=== PATIENT | female | born 1985 | race Caucasian/White ===

== ENCOUNTER 2016-06-15 15:11 | Emergency (ER) | payer BC ==
[~2016-06-15] VITALS: Ht 160 cm; Wt 80.0 kg
[~2016-06-15 15:11] MED LIST: ALPR0.5T PO; AZIT250T81 PO; CITA40TA5 PO; ETHY1TAB3 PO; FENO145T20; GUAI118L16; LEVO75TA; METR500T PO; OMEG-103 PO; ONDAN4ODT PO; ONDN4T PO; TOPI25CA6
--- OUTSIDE RECORDS SUMMARY | 2016-06-15 15:15 | XMS REPORT | Continuity of Care Document ---
Author Author [facility] Organization [facility] Address Unknown Phone Unavailable Care Team Providers Care Surveyor Geodetic Name Role Phone Bozena Flowers PCP Unavailable Source Comments Some departments are not documenting in the electronic medical record. If you do not see the information that you expected, contact Release of Information in the Health Information Management department at [phone] for further assistance in locating additional records.[facility] Active Allergies and Adverse Reactions Allergen Noted Date Severity Reactions Comments Other 07/02/2014 Low SEE COMMENTS Has to be pretreated with an Anti-histamin prior to any blood transfusions Current Medications Prescription Sig. Disp. Refills Start End Date Status Date estradiol (ESTRACE) 1 mg Take 1 mg by mouth daily. Active tablet escitalopram oxalate Take 20 mg by mouth Active (LEXAPRO) 20 mg tablet daily. clonazePAM (KLONOPIN) 1 Take 1 mg by mouth at Active mg tablet bedtime daily. B&C/FA/ZINC/COPPER Take by mouth. Active OXIDE/VIT E (STRESS B-COMPLEX PO) MULTIVITAMIN PO Take by mouth. Active levothyroxine (SYNTHROID) Take 1 Tab by mouth 30 Tab 6 07/13/19 Active 88 mcg tablet daily. 15 buPROPion XL (WELLBUTRIN Take 300 mg by mouth Active XL) 300 mg tablet every morning. Do not crush or chew. gemfibrozil (LOPID) 600 Take 600 mg by mouth Active mg tablet twice daily. hydroCHLOROthiazide Take 25 mg by mouth every Active (HYDRODIURIL) 25 mg morning. tablet linaclotide(+) (LINZESS) Take 145 mcg by mouth Active 145 mcg cap capsule daily 30 minutes before breakfast. Active Problems Problem Noted Date Colon cancer high risk 04/26/2016 Overview: Patient at increased risk related to family history - father with colon polyps identified at age 40 (unknown type) and grandmother with colon cancer (though this may have been metastatic from another primary per patient) Per the current [facility] LTFU Guidelines, patient is classified as high risk for colon cancer related to a history of therapeutic radiation to field potentially impacting colon tissue as follows: > 30 Gy - initiate colonoscopy screening at age 37 or 10 years after radiation (whichever occurs last) and continue at least every 5 years 2011 - colonoscopy WNL - plan on starting at age 37 unless symptoms or change to family history that dictates earlier screening Chronic low back pain with right-sided back and hip pain, Radiculopathy Overview: Progressive following Ewings treatment in right pelvis in [id number]. Follows with ortho/Dr. Sara Guadarrama in [place] and anesthesia pain / Dr. Cobos at [facility]. Has been told has disc protrusion at L4-L5. Getting epidural injections. 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 - no recent PT or PMR. 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 No recent SI / HI. - reports doing well on wellbutrin for anxiety and depression control. - [facility] [place]-psychology referral to coordinate with follow-up appointments History of obesity 04/26/2016 Overview: Formatting of this note may be different from the original. Body mass index is 30.88 kg/(m^2). Wt Readings from Last 5 Encounters: 04/26/16 81.647 kg (180 lb) 07/02/14 86.183 kg (190 lb) Discussed patient's BMI with her. The body mass index is 30.88 kg/(m^2). and falls within the category of Obesity 1 (30 to <35); BMI plan is in progress. - encouraged excellent progress to date with lifestyle efforts - discussed additional resources for consideration in future if desired - particularly interested in survivorship lifestyle study if / when available At risk for secondary malignancy 04/26/2016 Overview: Per the current [facility] LTFU Guidelines, patient is classified as increased risk for secondary malignancy related to a history of therapeutic radiation / antineoplastic chemotherapy - encouraged importance of lifestyle effort (avoidance of tobacco exposure, sun screen use, regular skin cancer screening exams) - CBC annually until at least 10 years off therapy (completed therapy 2000) and PRN - UA annually History of antineoplastic chemotherapy 04/25/2016 Overview: Formatting of this note may be different from the original. Drug Name Route Cumulative Dose Date of Treatment Comment 1 Ifosfamide IV 63,200 mg/m2 based of records received 2 Vincristine IV 7.5 mg/m2 based of records received 3 Etoposide (VP16) IV 3,900 mg/m2 based of records received 4 Cyclophosphamide IV 10,638 mg/m2 based of records received 5 Doxorubicin IV 360 mg/m2 based of records received - targeted late effects monitoring / education / screening updated [facility] visit 04/2016 History of radiation therapy 04/25/2016 Overview: Formatting of this note may be different from the original. Site/Field/Type Laterality Dates Fractions Dose per Fraction (Gy)* Total Fractions Initial Dose (GY)* Boost Dose (Gy)*/Site Total Dose /w Boost (Gy)* 1 Pelvis: Pelvic Right START: 10-12-1999 STOP: 11-29-1999 Gy 55.8 Gy Oncologist: Institution: Comment: - targeted late effects monitoring / education / screening updated [facility] visit 04/2016 Acquired hypothyroidism 04/25/2016 Overview: Formatting of this note may be different from the original. 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 Was on dual hormone therapy with estrogen and progesterone until 2013 when changed to estrogen only 12/2014 - DEXA (see bone density) - continue estrogen replacement therapy At risk for cardiac dysfunction 04/25/2016 Overview: Per the current [facility] LTFU Guidelines, patient is classified as high risk for cardiac dysfunction related to cardiotoxic chemotherapy. 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 She presented to the ED where a pelvic CT revealed a a pelvic mass. On intital evaluation a vague fullness was palpated over her right buttock with tenderness in the medial aspect of that fullness. She did not have organomegaly or adenopathy. Laboratory evaluation revealed a normal CBC with a ESR of 13. A MRI scan of the pelvis showed infiltration of the right iliac wing surrounding soft tissue mass and possible extension into the right sacrum. Three views of the pelvis showed fraying of the iliac wing side of the right sacral iliac joint with some possible lucencies in the right iliac wing. Bone scan showed abnormal radiotracer uptake in the right iliac wing with no evidence of metastatic disease. Chest CT showed no evidence of pulmonary metastases. An open biopsy of the right pelvic tumor was consistent with a diagnosis of Jacobson's tumor. Treatment Dates: 08-01-1999 to 08-23-2000 Treating Facility: Treating Providers: (oncology), (radiation oncology) Prior Formal Survivorship Care before [facility]: Survive and Thrive Clinic at [facility] in [place], [place] - Dr. Deepthi Mcarthur prior to establishing with [facility] / Dr. Mohan in 04/2016 - treatment summary loaded into survivorship tab - targeted late effects monitoring / education / screening updated [facility] visit Most Recent Encounters Date Type Specialty Providers Description 04/26/2016 [facility] Carmela Mohan MD Personal history of Encounter malignant neoplasm of bone 04/26/2016 Office Visit General Internal Medicine Carmela Mohan MD History of Jacobson's sarcoma (Primary Dx); History of oophorectomy; History of antineoplastic chemotherapy; History of radiation therapy; Dyslipidemia; Acquired hypothyroidism; Premature ovarian failure; Other depression; At risk for cardiac dysfunction; Jacobson's sarcoma (HCC); Colon cancer high risk; Anxiety and depression; Medication monitoring encounter; Chronic low back pain with right-sided back and hip pain, Radiculopathy 04/16/2016 Documentation General Internal Medicine Mirta Diehl, CELESTE 04/11/2016 Telephone General Internal Medicine Mirta Diehl, RN Appointment Social History Tobacco Use Types Packs/Day Years Used Date Never Smoker Alcohol Use Drinks/Week oz/Week Comments No 0 Standard 0.0 drinks or equivalent Last Filed Vital Signs Vital Sign Reading Time Taken Blood Pressure 131/69 04/26/2016 9:08 AM CONTRACTS ADVISOR Pulse 95 04/26/2016 9:08 AM CONTRACTS ADVISOR Temperature - - Respiratory Rate 16 04/26/2016 9:08 AM CONTRACTS ADVISOR Height 1.626 m (5' 4") 04/26/2016 9:08 AM CONTRACTS ADVISOR Weight 81.647 kg (180 lb) 04/26/2016 9:08 AM CONTRACTS ADVISOR Body Mass Index 30.88 04/26/2016 9:08 AM CONTRACTS ADVISOR Oxygen Saturation - - Plan of Care Health Maintenance Due Date Last Done Comments Physical (Comprehensive) 10/30/1994 Exam Pertussis Vaccine 10/30/1998 Tetanus Vaccine 10/30/2004 Cervical Cancer Screening 10/30/2008 Influenza Vaccine 11/09/2016 Results from Last 3 Months NOTES (04/26/2016 10:49 AM) Component Value Range Specimen Notes pt unable to provide urine TSH WITH FREE T4 REFLEX (04/26/2016 10:49 AM) Component Value Range TSH 1.132 0.35-5.00 MCU/ML Specimen Blood COMPREHENSIVE METABOLIC PANEL (04/26/2016 10:49 AM) Component Value Range Sodium 137 137-147 MMOL/L Potassium 3.5 3.5-5.1 MMOL/L Chloride 101 98-110 MMOL/L Glucose 100 70-100 MG/DL Blood Urea Nitrogen 18 7-25 MG/DL Creatinine 0.65 0.4-1.00 MG/DL Calcium 10.2 8.5-10.6 MG/DL Total Protein 7.6 6.0-8.0 G/DL Total Bilirubin 0.5 0.3-1.2 MG/DL Albumin 4.6 3.5-5.0 G/DL Alk Phosphatase 42 25-110 U/L AST (SGOT) 18 7-40 U/L CO2 30 21-30 MMOL/L ALT (SGPT) 24 7-56 U/L Anion Gap 6 3-12 eGFR Non >60Comment: >60 mL/min The eGFR is not validated for use in drug dosing adjustments. Continue to use estimated creatinine clearance per dosing reference text. Please contact the Clinical Pharmacist for questions. eGFR >60Comment: >60 mL/min The eGFR is not validated for use in drug dosing adjustments. Continue to use estimated creatinine clearance per dosing reference text. Please contact the Clinical Pharmacist for questions. Specimen Blood CBC AND DIFF (04/26/2016 10:49 AM) Component Value Range White Blood Cells 7.0 4.5-11.0 K/UL RBC 4.40 4.0-5.0 M/UL Hemoglobin 14.1 12.0-15.0 GM/DL Hematocrit 39.9 36-45 % MCV 90.6 80-100 FL MCH 31.9 26-34 PG MCHC 35.2 32.0-36.0 G/DL RDW 13.1 11-15 % Platelet Count 287 150-400 K/UL MPV 8.4 7-11 FL Neutrophils 58 41-77 % Lymphocytes 30 24-44 % Monocytes 9 4-12 % Eosinophils 2 0-5 % Basophils 1 0-2 % Absolute Neutrophil Count 4.10 1.8-7.0 K/UL Absolute Lymph Count 2.10 1.0-4.8 K/UL Absolute Monocyte Count 0.60 0-0.80 K/UL Absolute Eosinophil Count 0.10 0-0.45 K/UL Absolute Basophil Count 0.00 0-0.20 K/UL Specimen Blood
--- OUTSIDE RECORDS SUMMARY | 2016-06-15 15:17 | XMS REPORT | Continuity of Care Document ---
Author Author [facility] Organization [facility] Address Unknown Phone Unavailable Care Team Providers Care Telephone Interceptor Operator Name Role Phone Bozena Flowers PCP Unavailable Source Comments Some departments are not documenting in the electronic medical record. If you do not see the information that you expected, contact Release of Information in the Health Information Management department at [phone] for further assistance in locating additional records.[facility] Active Allergies and Adverse Reactions Allergen [...] another primary per patient) Per the current [facility] LTFU Guidelines, patient is classified as high [...] following Ewings treatment in right pelvis in [id number]. Follows with ortho/Dr. Sara Guadarrama in [place] and anesthesia pain / Dr. Cobos at [facility]. Has been told has disc [...] pelvic radiation exposure 12/2014 - DEXA at [place] right total femoral region BMD of 0.584g/cm2 [...] wellbutrin for anxiety and depression control. - [facility] oncology-psychology referral to coordinate with follow-up appointments [...] secondary malignancy 04/26/2016 Overview: Per the current [facility] LTFU Guidelines, patient is classified as increased [...] effects monitoring / education / screening updated [facility] visit 04/2016 History of radiation therapy 04/25/2016 Overview: Formatting of this note may be different from the original. Site/Field/Type Laterality Dates Fractions Dose per Fraction (Gy)* Total Fractions Initial Dose (GY)* Boost Dose (Gy)*/Site Total Dose /w Boost (Gy)* 1 Pelvis: Pelvic Right START: 10-12-1999 STOP: 11-29-1999 Gy 55.8 Gy Oncologist: Institution: Comment: - targeted late effects monitoring / education / screening updated [facility] visit 04/2016 Acquired hypothyroidism 04/25/2016 Overview: Formatting [...] (radiation oncology) Prior Formal Survivorship Care before [facility]: Survive and Thrive Clinic at [facility] in [place], [place] - Dr. Deepthi Mcarthur prior to establishing with [facility] Survivorship Transition Clinic / Dr. Mohan in 04/2016 - treatment summary loaded into survivorship tab - targeted late effects monitoring / education / screening updated [facility] visit Most Recent Encounters Date Type Specialty Providers Description 04/26/2016 [facility] Carmela Mohan MD Personal history of Encounter [...] Taken Blood Pressure 131/69 04/26/2016 9:08 AM CIRCUS HAND Pulse 95 04/26/2016 9:08 AM CIRCUS HAND Temperature - - Respiratory Rate 16 04/26/2016 9:08 AM CIRCUS HAND Height 1.626 m (5' 4") 04/26/2016 9:08 AM CIRCUS HAND Weight 81.647 kg (180 lb) 04/26/2016 9:08 AM CIRCUS HAND Body Mass Index 30.88 04/26/2016 9:08 AM CIRCUS HAND Oxygen Saturation - - Plan of Care [...]
[2016-06-15] MEDS ORDERED: ESCI20TA39 PO (16:10)
[2016-06-15] MEDS ORDERED: ETHY1TAB3 PO (16:10)
[2016-06-15] MEDS ORDERED: ESTR2TAB PO (16:10)
[2016-06-15] MEDS ORDERED: LEVO88TA4 PO (16:15)
[2016-06-15] MEDS ORDERED: HCT25T PO (16:15)
[2016-06-15] MEDS ORDERED: BUPR450T PO (16:15)
[2016-06-15] MEDS ORDERED: CLON1TAB3 PO (16:15)
[2016-06-15] MEDS ORDERED: GEMF600T3 PO (16:15)
[2016-06-15] MEDS ORDERED: LINA145C PO (16:16)
[2016-06-15] MEDS ORDERED: LORazepam 2 MG/ML (ATIVAN) 1 ML VIAL IV ONE (16:35)
[2016-06-15] MEDS ORDERED: SODIUM CHLORIDE FLUSH 10 ML SYR IV PRN (16:35)
[2016-06-15] MEDS ORDERED: SODIUM CHLORIDE FLUSH 3 ML SYR IV PRN (16:35)
[2016-06-15 16:53] LABS: BASOPHILS % (AUTO) 1 % (0-2); EOSINOPHILS # (AUTO) 0.2 10^3uL; EOSINOPHILS % (AUTO) 2 % (0-4); LYMPHOCYTES # (AUTO) 1.7 X10^3; MEAN CORPUSCULAR HEMOGLOBIN 31.2 PG (26.0-34.0); MEAN CORPUSCULAR VOLUME 88 FL (80-100); MEAN PLATELET VOLUME 10.8 FL (6.0-9.5); MONOCYTES # (AUTO) 0.9 X10^3; MONOCYTES % (AUTO) 11 % (3-11); NEUTROPHILS # (AUTO) 5.4 X10^3; NEUTROPHILS % (AUTO) 66 % (51-67); PLATELET COUNT 252 10^3uL (150-450); WHITE BLOOD COUNT 8.21 10^3uL (4.0-11.0)
[2016-06-15 16:54] LABS: MEAN CORPUSCULAR HGB CONC 35.6 g/dL (31.0-37.0)
[2016-06-15 17:12] LABS: ALBUMIN 5.1 g/dL (3.4-5.0); ANION GAP 21.1 MEQ/L (3-15); CALCULATED IONIZED CALCIUM 3.8 mg/dL (3.8-4.6); TOTAL PROTEIN 8.9 g/dL (6.4-8.5)
[2016-06-15 18:17] LABS: BILIRUBIN,URINE Negative (Negative); COLOR,URINE Yellow; GLUCOSE, URINE (UA) Negative (Negative); LEUKOCYTE ESTERASE ,URINE Negative (Negative); UROBILINOGEN,URINE 0.2 mg/dL (0.2-1.0)
[2016-06-15 18:22] LABS: CLARITY,URINE Slightly Cloudy
[2016-06-15 18:33] LABS: RBC,URINE 0-2 /HPF; URINE CENTRIFUGED VOLUME 12 mL
[2016-06-15 20:25] VITALS: BP 114/68
== END 2016-06-15 18:55 | disposition home or self-care (01) ==
LOC: ED 15:13
DX: F41.1 Generalized anxiety disorder (principal); F43.9 Reaction to severe stress, unspecified
CPT/HCPCS: 36415; 80053; 81003; 81015; 84443; 85025; 96361; 96374; 99285; J2060; J7030; 99282